=== PATIENT | female | born 1990 | race Two or more races ===

== ENCOUNTER 2024-06-25 06:13 | Day surgery (SDC) | payer OTHER ==
[2024-06-22 11:59] LABS: HEMATOCRIT 41.6 % (36.0-45.00); HEMOGLOBIN 14.1 g/dL (12.0-15.00); MEAN CELL VOLUME 78.7 fL (80.00-100.00); MEAN CORPUSCULAR HEMOGLOBIN 26.8 pg (27.00-32.0); PLATELET COUNT 209 K/uL (150-450); RED BLOOD COUNT 5.29 M/uL (4.00-6.00)
[2024-06-22 12:08] LABS: PH,URINE 5.5 (5.0-8.0); URINE APPEARANCE Clear; URINE BILIRRUBIN Negative (NEGATIVE); URINE BLOOD Negative; URINE COLOR Yellow; URINE GLUCOSE Negative (NEGATIVE); URINE KETONE Negative (NEGATIVE); URINE LEUKOCYTE Negative; URINE NITRATE Negative; URINE PROTEIN Negative (NEGATIVE); URINE UROBILINOGEN 0.2 E.U./dl
[2024-06-22 12:12] LABS: URINE BACTERIA 322.5 uL (0.0-1933); URINE EPITHELIAL CELLS 12.5 uL (0.0-38.8); URINE RBC 27.3 uL (0.0-20.8); URINE WBC 4.1 uL (0.0-23.2)
[2024-06-22 12:16] LABS: INR 1.03; PARTIAL THROMBOPLASTIN TIME 28.7 SECONDS (22.0-34.0); PROTHROMBIN TIME 11.2 SECONDS (9.0-11.5)
[2024-06-22 12:37] LABS: ALBUMIN 4.5 gm/dL (3.4-5.0); BILIRUBIN TOTAL 0.52 mg/dL (0.3-1.2); CALCIUM 9.6 mg/dL (8.5-10.1); CREATININE SERUM 0.68 mg/dL (0.55-1.02); GFR 99.04; POTASSIUM 4.23 mEq/L (3.5-5.1); TOTAL PROTEIN 8.5 gm/dL (6.4-8.2)
[2024-06-25] MEDS ORDERED: POVIDONE-IODINE 118 ML BOTT TOP ONE (10:15)
[2024-06-25] MEDS ORDERED: KETOROLAC TROMETHAMINE 30 MG VIAL IV STA (11:21)
[2024-06-25] MEDS ORDERED: MORPHINE SULFATE 2 MG/ML CARTRIDGE IV ONE ×2 (13:10→13:50)
== END 2024-06-25 18:05 | disposition home or self-care (01) ==
LOC: CIR.AMB 06:13
PROVIDERS: ATTEND Obstetrics & Gynecology
DX: D25.0 Submucous leiomyoma of uterus (principal); N84.0 Polyp of corpus uteri; N93.8 Other specified abnormal uterine and vaginal bleeding; N95.0 Postmenopausal bleeding; J32.9 Chronic sinusitis, unspecified